=== PATIENT | female | born 1935 | race Caucasian/White ===

== ENCOUNTER 2019-03-03 11:16 | Emergency (ER) | payer MEDICARE, BC ==
[2019-03-03 12:42] VITALS: BP 122/57
--- NOTE | 2019-03-03 14:23 | UC ---
Hip/Pelvis Pain - HPI Summary HPI Summary: 82-year-old female with dementia who has 24/7 nursing care at home. She is ambulatory. Her daughter who lives in [place] came to visit her 3 weeks ago and noted that she has some favoring of her left leg and hip. There is no known injury and no known falls according to the caregivers. She's had no recent illness, no fever or chills, no urinary complaints. The caregivers asked to have a left hip x-ray done. - History Of Current Complaint Chief Complaint: UCLowerExtremity Stated Complaint: LT LEG PAIN Time Seen by Provider: 03/03/19 12:29 Hx Obtained From: Family/[employer] ?: No Onset/Duration: Gradual Onset Timing: Constant Severity Initially: Mild Severity Currently: Mild Pain Intensity: 0 Pain Scale Used: 0-10 Numeric Character Of Pain: Unable To Describe Aggravating Factor(s): Other - The caregivers and the daughter states she has more difficulty with walking and has started shuffling however they have not noticed any weakness Alleviating Factor(s): Nothing Associated Signs And Symptoms: Positive: Negative - Allergies/Home Medications Allergies/Adverse Reactions: Allergies Allergy/AdvReac Type Severity Reaction Status Date / Time No Known Allergies Allergy Verified 03/03/19 12:42 Home Medications: Home Medications Aspirin 81 mg CHEW TAB* [Aspirin Low Dose TAB*] 81 mg PO DAILY 03/03/19 [ History Confirmed 03/03/19] Atorvastatin* [Lipitor*] 40 mg PO QPM 03/03/19 [History Confirmed 03/03/19] Budesonide/Formote 80/4.5(NF) [Symbicort 80/4.5 (NF)] 1 puff INH BID 03/03/19 [ History Confirmed 03/03/19] Cholecalciferol (Vitamin D3) [Vitamin D-3] 2,000 unit PO 03/03/19 [History] Fluticasone/Vilanterol MDI(NF) [Breo Ellipta MDI (NF)] 1 puff INH DAILY [History Confirmed 03/03/19] Furosemide TAB* [Lasix TAB*] 20 mg PO DAILY 03/03/19 [History Confirmed 03/03/19 ] Levothyroxine TAB* [Synthroid TAB*] 100 mcg PO DAILY 03/03/19 [History Confirmed 03/03/19] Multivitamin [Multivitamins] 1 cap PO 03/03/19 [History] Risperidone [Risperdal] 0.5 mg PO BEDTIME 03/03/19 [History Confirmed 03/03/19] Sertraline HCl [Zoloft] 150 mg PO 03/03/19 [History] PMH/Surg Hx/FS Hx/Imm Hx Previously Healthy: Yes Endocrine History: Thyroid Disease - Patient had a thyroidectomy in the past. Neurological History: Dementia - Surgical History Surgical History: Yes Surgery Procedure, Year, and Place: thyroidectomy - Family History Known Family History: Positive: Non-Contributory - Social History Occupation: Retired Lives: With Family - Patient has nursing care 04/09. She is usually ambulatory at home however does not use a walker. Alcohol Use: Occasionally Substance Use Type: None Smoking Status (MU): Never Smoked Tobacco Review of Systems All Other Systems Reviewed And Are Negative: Yes Is Patient Immunocompromised?: No - Comments Additional Review of Systems Comments: Patient has no complaints today. The daughter's concern is that she has started shuffling rather than walking like she normally did however the daughter realizes that she is "going downhill". Her states no recent illness. The caregivers at the house asked that she have a left hip x-ray however they were unaware of any injury or falls. Physical Exam Triage Information Reviewed: Yes Completion Of Physical Exam Limited Due To: Dementia Appearance: Well-Appearing, No Pain Distress, Well-Nourished Vital Signs: Initial Vital Signs Temp 97.8 F 03/03/19 12:32 Pulse 68 03/03/19 12:32 Resp 18 03/03/19 12:32 BP 122/57 03/03/19 12:32 Pulse Ox 95 03/03/19 12:32 Vital Signs Reviewed: Yes Eyes: Positive: Conjunctiva Clear, Other: - EOMI, PERRLA, negative eye drift ENT: Positive: Hearing grossly normal, Pharynx normal, TMs normal, Uvula midline Neck: Positive: Supple, Nontender, No Lymphadenopathy Respiratory: Positive: Lungs clear, Normal breath sounds, No respiratory distress, No accessory muscle use Cardiovascular: Positive: RRR, No Murmur, Pulses Normal, Brisk Capillary Refill Abdomen Description: Positive: Nontender, No Organomegaly, Soft. Negative: CVA Tenderness (R), CVA Tenderness (L), Distended, Guarding Bowel Sounds: Positive: Present Musculoskeletal Exam: Normal Musculoskeletal: Positive: Strength Intact, ROM Intact, No Edema, Other: - Good peripheral pulses, neuro sensation capillary refill, no pedal edema or ankle edema. Good range of motion of her extremities without pain. Neurological: Positive: Alert - Cranial nerves II through XII are intact. Good arm and leg strength against resistance equal bilaterally., Muscle Tone Normal Psychological: Positive: Normal Response To Family, Decreased Age Appropriate Behavior Skin Exam: Normal Hip Injury Course/Dx - Course Course Of Treatment: Urinalysis: Negative Left hip x-ray: FINDINGS: BONE DENSITY: There is diffuse osteopenia. BONES: There is no displaced fracture. 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 ALIGNMENT: There is no dislocation. SOFT TISSUES: There is peripheral arterial calcification. OTHER FINDINGS: None. IMPRESSION: 1. OSTEOPENIA. 2. OSTEOARTHRITIS. 3. PERIPHERAL ARTERIAL DISEASE. 4. NO RADIOGRAPHIC EVIDENCE FOR HIP FRACTURE. X-RAYS MAY BE NEGATIVE WITH NONDISPLACED HIP FRACTURE, IF THERE IS PERSISTENT CLINICAL CONCERN, RECOMMEND CONSIDERATION OF MRI. IN THE SETTING OF CONTRAINDICATION TO MRI OR LIMITATION IN EMERGENT ACCESS TO MRI, CT WOULD BE SUGGESTED. X-ray:FINDINGS: CARDIOMEDIASTINAL SILHOUETTE: The cardiomediastinal silhouette is normal. JAC: The jac are normal. PLEURA: There is eventration of the right hemidiaphragm. LUNG PARENCHYMA: There is hyperinflation with flattening of the diaphragm and expansion of the AP diameter of the chest. ABDOMEN: The upper abdomen is clear. There is no subphrenic gas. BONES AND SOFT TISSUES: No bone or soft tissue abnormalities are noted. OTHER: Surgical clips are noted overlying the lower neck. IMPRESSION: HYPERINFLATION. NO ACTIVE CARDIOPULMONARY DISEASE. The patient is comfortable here and in no distress. She does have an appointment with her primary care provider this coming Sunday. I advised the daughter to keep that appointment. At this point in time I'm unable to find any source of her difficulty walking. The daughter is going to buy a walker and see if that helps the patient. - Differential Dx/Diagnosis Provider Diagnosis: Left hip pain Discharge ED - Sign-Out/Discharge Documenting (check all that apply): Patient Departure All imaging exams completed and their final reports reviewed: Yes - Discharge Plan Condition: Good Disposition: HOME Patient Education Materials: Hip Pain (ED) [facility] [Provider Group] No Primary Care Phys,[facility] [Primary Care Provider] - Additional Instructions: Follow-up with your primary care provider as scheduled on Sunday. Go to the emergency room if any worsening symptoms. - Billing Disposition and Condition Condition: GOOD Disposition: Home
== END 2019-03-03 14:13 | disposition home or self-care (01) ==
LOC: EDBD → MERGE 11:16 → UCCORT 11:16
DX: M25.552 Pain in left hip (principal); R91.8 Other nonspecific abnormal finding of lung field; M85.88 Other specified disorders of bone density and structure, other site; M16.12 Unilateral primary osteoarthritis, left hip; I73.9 Peripheral vascular disease, unspecified; E07.9 Disorder of thyroid, unspecified; F03.90 Unspecified dementia, unspecified severity, without behavioral disturbance, psychotic disturbance, mood disturbance, and anxiety; Z79.890 Hormone replacement therapy; Z79.82 Long term (current) use of aspirin
CPT/HCPCS: 71046; 81003; 99201; G0463